=== PATIENT | female | born 2000 | race Caucasian/White ===

== ENCOUNTER 2019-02-16 20:34 | Emergency (ER) | payer SELFPAY ==
[~2019-02-16] VITALS: Ht 162.6 cm; Wt 59.1 kg
[~2019-02-16 20:34] MED LIST: PROZAC PO
[2019-02-16] MEDS ORDERED: LORazepam 2MG/ML-1ML VIAL IV ONE (21:15)
[2019-02-16 22:08] LABS: Acetaminophen < 2.0 ug/mL (10-30); Salicylate < 1.7 mg/dL (2.8-20.0)
[2019-02-16 22:10] LABS: Calcium 8.8 mg/dL (8.5-10.1); Chloride 105 mmol/L (98-107); Potassium 3.9 mmol/L (3.5-5.1); Sodium 140 mmol/L (136-145)
[2019-02-16 22:12] LABS: Basophils # (auto) 0 uL; Basophils % (auto) 0.2 % (0.0-2.0); Eosinophils # (auto) 0 uL; Hematocrit 40.7 % (36.0-46.0); Hemoglobin 13.1 g/dL (12.2-16.2); Lymphocytes # (auto) 0.8 uL; Lymphocytes % (auto) 3.8 % (10.0-50.0); Mean Corpuscular Hemoglobin 30.2 pg (28.0-32.0); Mean Corpuscular Hgb Conc. 32.2 g/dL (32.0-36.0); Mean Corpuscular Volume 93.6 fL (80.0-100.0); Monocytes # (auto) 0.8 uL; Monocytes % (auto) 3.9 % (0.0-12.0); Neutrophils # (auto) 19.1 uL; Neutrophils % (auto) 92.1 % (37.0-80.0); Platelet Count (auto) 315 10^3/uL (140-450); Red Blood Cells 4.34 10^6/uL (4.0-5.20); Red Cell Distribution Width 12.4 % (11.8-14.3); White Blood Cell 20.7 10^3/uL (4.4-10.8)
[2019-02-16 22:15] LABS: Alanine Aminotransferase 136 U/L (13-56); Albumin 3.9 g/dL (3.4-5.0); Alkaline Phosphatase 116 U/L (45-117); Anion Gap 22 (5-15); Aspartate Aminotransferase 189 U/L (15-37); BUN/Creatinine Ratio 11.7; Bilirubin, Total 0.4 mg/dL (0.2-1.0); Blood Urea Nitrogen 19 mg/dL (7-18); Carbon Dioxide 13 mmol/L (21-32); GFR African American 52 mL/min; GFR Non-African American 43 mL/min; Glucose 166 mg/dL (74-106); Magnesium 3.2 mg/dL (1.6-2.6); Total Protein 7.5 g/dL (6.4-8.2)
[2019-02-16 22:34] LABS: Blood Alcohol < 3.0 mg/dL (0-5)
[2019-02-16 22:44] LABS: Urine Pregnacy Test Negative (Negative)
[2019-02-16 22:55] LABS: Urine Amorphous Crystal FEW /hpf (None Seen); Urine Bacteria NONE SEEN /hpf (None Seen); Urine Blood 1+ /uL (Negative); Urine Hyaline Cast FEW /lpf (0 - 2); Urine Mucus FEW (None Seen); Urine Specific Gravity 1.013 (1.001-1.035); Urine WBC 2 /hpf (0 - 5)
[2019-02-16] MEDS ORDERED: SODIUM CHLORIDE 0.9% 2,000 ML IV ONE (23:00)
[2019-02-16 23:58] LABS: Alcohol, Urine < 3.0 mg/dL (0-5); Amphetamine Screen, Urine NEGATIVE (NEGATIVE); Barbiturate Scree,Urine NEGATIVE (NEGATIVE); Benzodiazephine Screen, Urine NEGATIVE (NEGATIVE); Cannabinoid Screen, Urine NEGATIVE (NEGATIVE); Cocaine Screen, Urine POSITIVE (NEGATIVE); Opiate Scree,Urine NEGATIVE (NEGATIVE); Phencyclidine Screen, Urine NEGATIVE (NEGATIVE)
[2019-02-17] MEDS ORDERED: SODIUM CHLORIDE 0.9% 1,000 ML IV ONE (00:15)
[2019-02-17 06:35] VITALS: BP 107/68
[2019-02-17 08:53] LABS: Basophils # (auto) 0.1 uL; Basophils % (auto) 0.6 % (0.0-2.0); Eosinophils # (auto) 0 uL; Eosinophils % (auto) 0.1 % (0.0-7.0); Hematocrit 36.3 % (36.0-46.0); Hemoglobin 12.4 g/dL (12.2-16.2); Lymphocytes # (auto) 2.4 uL; Lymphocytes % (auto) 19.5 % (10.0-50.0); Mean Corpuscular Hemoglobin 31.4 pg (28.0-32.0); Mean Corpuscular Hgb Conc. 34.3 g/dL (32.0-36.0); Mean Corpuscular Volume 91.7 fL (80.0-100.0); Monocytes # (auto) 0.8 uL; Neutrophils # (auto) 8.9 uL; Neutrophils % (auto) 72.8 % (37.0-80.0); Platelet Count (auto) 249 10^3/uL (140-450); Red Blood Cells 3.95 10^6/uL (4.0-5.20); White Blood Cell 12.2 10^3/uL (4.4-10.8)
== END 2019-02-17 10:28 | disposition home or self-care (01) ==
LOC: EDBD 20:34 → EDUNIT# 20:34 → ER 20:34
DX: T40.602A Poisoning by unspecified narcotics, intentional self-harm, initial encounter (principal); F32.9 Major depressive disorder, single episode, unspecified; R45.851 Suicidal ideations; Y92.89 Other specified places as the place of occurrence of the external cause
CPT/HCPCS: 36415; 70450; 71045; 76700; 80053; 80307; 80320; 80329; 81001; 81025; 82140; 83735; 85025; 94761; 96361; 96374; 99284; J2060; J7030

== ENCOUNTER 2019-03-28 17:03 | Emergency (ER) | payer OTHER ==
[~2019-03-28] VITALS: Ht 167.6 cm; Wt 54.4 kg
[2019-03-28 18:05] LABS: Basophils # (auto) 0 uL; Basophils % (auto) 0.3 % (0.0-2.0); Eosinophils # (auto) 0 uL; Eosinophils % (auto) 0.1 % (0.0-7.0); Hematocrit 39.7 % (36.0-46.0); Hemoglobin 13.3 g/dL (12.2-16.2); Lymphocytes # (auto) 0.5 uL; Mean Corpuscular Hemoglobin 30.8 pg (28.0-32.0); Mean Corpuscular Hgb Conc. 33.5 g/dL (32.0-36.0); Mean Corpuscular Volume 91.9 fL (80.0-100.0); Monocytes # (auto) 0.4 uL; Monocytes % (auto) 4.5 % (0.0-12.0); Neutrophils % (auto) 89.1 % (37.0-80.0); Platelet Count (auto) 176 10^3/uL (140-450); Red Blood Cells 4.32 10^6/uL (4.0-5.20); Red Cell Distribution Width 12.8 % (11.8-14.3)
[2019-03-28 18:36] LABS: Albumin 3.9 g/dL (3.4-5.0); BUN/Creatinine Ratio 19.1; Bilirubin, Total 0.8 mg/dL (0.2-1.0); Calcium 8.9 mg/dL (8.5-10.1)
[2019-03-28] MEDS ORDERED: SODIUM CHLORIDE 0.9% 1,000 ML IVB ONE (18:46)
[2019-03-28] MEDS ORDERED: PROMETHAZINE HCL 25 MG/ML 1ML IV PRN (19:00)
[2019-03-28 19:22] LABS: Magnesium 1.9 mg/dL (1.6-2.6)
[2019-03-28 19:23] LABS: Urine Pregnacy Test Negative (Negative)
[2019-03-28 19:30] LABS: Urine Bacteria NONE SEEN /hpf (None Seen); Urine Blood Negative /uL (Negative); Urine Mucus FEW (None Seen); Urine WBC 17 /hpf (0 - 5)
[2019-03-28 19:56] LABS: Alcohol, Urine < 3.0 mg/dL (0-5); Amphetamine Screen, Urine NEGATIVE (NEGATIVE); Barbiturate Scree,Urine NEGATIVE (NEGATIVE); Opiate Scree,Urine NEGATIVE (NEGATIVE); Phencyclidine Screen, Urine NEGATIVE (NEGATIVE)
[2019-03-28 19:57] LABS: Benzodiazephine Screen, Urine POSITIVE (NEGATIVE); Cannabinoid Screen, Urine NEGATIVE (NEGATIVE); Cocaine Screen, Urine NEGATIVE (NEGATIVE)
[2019-03-28] MEDS ORDERED: cefTRIAXone 1GM/50ML D5W 50 ML IV ONE (21:45)
[2019-03-28] MEDS ORDERED: SODIUM CHLORIDE 0.9% 1,000 ML IV ONE (22:45)
[2019-03-29 00:30] VITALS: BP 101/61
== END 2019-03-29 02:09 | disposition short-term general hospital (02) ==
LOC: EDBD 17:03 → ER 17:08
DX: R10.13 Epigastric pain (principal); R11.2 Nausea with vomiting, unspecified; K59.00 Constipation, unspecified; F11.10 Opioid abuse, uncomplicated; F50.00 Anorexia nervosa, unspecified
CPT/HCPCS: 36415; 74176; 80053; 80307; 81001; 81025; 82150; 83690; 83735; 84702; 85025; 94761; 96361; 96365; 96375; 99291; J0696; J2550; J7030